=== PATIENT | male | born 1955 | race Caucasian/White ===

== ENCOUNTER 2018-06-22 12:12 | Inpatient (IN) | payer OTHER, SELFPAY ==
[2018-06-18 10:56] VITALS: BMI 25.8
[2018-06-22] VITALS (15 sets, daily range): BP systolic 99–143; BP diastolic 59–86; PULSE 63–84; RESP 7–18; TEMP 36–36.9; O2SAT 88–100; BMI 25.8
--- NOTE | 2018-06-22 | DI.RAD.S_ITS ---
PROCEDURE: XR LUMBAR SPINE 2-3V INDICATIONS: L4-5 TLIF TECHNIQUE: 2 views of the lumbar spine were acquired. COMPARISON: None. FINDINGS: Intraoperative images demonstrate L4-5 posterior fusion. There is trace retrolisthesis of L3 on L4. Hardware appears intact. IMPRESSION: Intraoperative posterior fusion as above. Dictated by: Maddison Hua M.D. on 06/22/2018 at 17:51 Approved by: Maddison Hua M.D. on 06/22/2018 at 17:52
[2018-06-22] MEDS: LACTATED RINGERS 1,000 ML 42 ML IV ×2 (14:35→17:50)
--- NOTE | 2018-06-22 15:01 | PM.PREOP ---
Pre-operative Note Interval Note Pre-op Check: Yes History & Physical Reviewed by Physician, Yes Exam Performed and Yes History & Physical exam performed today by Physician Changes: No
[2018-06-22] MEDS: CEFAZOLIN 2 GM/100 ML FROZ.PIGGY IV ×2 (15:30→23:47)
--- NOTE | 2018-06-22 16:02 | SUR.OPER ---
Prone on spine table, head in foam head support, padded chest and pelvic supports, gel pad at knees, lower legs supported by pillows; nipples, genitalia and toes free of pressure, arms secured on foam padded arm boards at <90 degrees abduction. Tape over blanket at thigh secured to table. gel pad between heels
[2018-06-22] MEDS: BUPIVACAINE 0.25% W/ EPI VIAL 30 ML INJ (16:11)
[2018-06-22] MEDS: BUPIVACAINE LIPOSOME 266 MG/20 ML VIAL INJ (16:12)
--- NOTE | 2018-06-22 17:37 | PM.OP.1 ---
Operative Date/Time/Diagnoses Date of procedure: 06/22/18 Time of procedure: 15:37 Pre-op diagnosis: 1. L4-5 far lateral disc herniation 2. Left sided drop foot 3. L4-5 spinal stenosis with radiculopathy Post-op diagnosis: same Procedure & Clinicians Procedure: 1. L4-5 Postero-lateral and posterior interbody fusion 2. L4-5 interbody cage placement. 3. L4-5 decompressive laminectomy with bilateral facetecomies 4. L4-5 Posterior non-segmental instrumentation 5. [place] of bone marrow from iliac crest 6. Utilization of microsurgical technique and operating microscope Same procedure as scheduled: Yes Indications: Patient has been having chronic back pain and worsening lumbar radiculopathy. Patient was found to have a left-sided L4-5 far lateral disc herniation. As a result, patient has a left-sided drop foot notes progressively worsening. Patient failed multiple conservative management with worsening pain weakness and numbness in her lower extremity. Patient has been having difficulty performing activity of daily living. After discussing risks benefits of treatment options, patient elected proceed with surgery. Surgeon: Silvestre Aguiar Clinical Engineering Director: Jessy Muir Click Yes if Unassisted: No Anesthesia Type: General Operative Notes Closure Type: primary Specimen(s): none sent Implants & Drains: Globus Revolve screws and Rise cages Estimated Blood Loss (mL): 50 Blood products transfused: none Procedure in detail: Patient was seen in the preoperative area. Risks and benefits of the surgery was discussed with the patient. Informed consent was obtained from the patient and placed in the chart. Surgical site was marked. Patient was taken to the operative room. General anesthesia was administered. Prophylactic antibiotic was given to the patient less than 30 min before the incision was made. Patient was placed into a prone position on the Mukesh table. Patient's back was then prepped and draped in the sterile fashion. Time-out was performed at this time. Using AP and lateral C-arm imaging the interval between L4-5 was identified and marked on patient's back. A 2 inch incision 2 in from midline was made on the right side first. The fascia was incised in line with skin incision. Globus MARS retractors was placed inside the incision and docked onto the L4 lamina. Using microsurgical technique and operating microscope, a L4 laminectomy and L4-5 facetectomy was performed using a Kerrison rongeur. The disc space at L4-5 was identified. Patient was found to have a large left-sided far lateral disc herniation causing severe left L4 nerve root impingement. The herniated disc fragment along with the rest of the disc at L4-5 level was removed. The left L4 nerve root was found to be under significant pressure and also flattened as a result. After the decompression was completed, the neural foramen was inspected. There was no impingement on the nerve root after decompression was finished. And a total diskectomy was performed at L4-5 level. The endplates were decorticated using a rasp and shaver. The total diskectomy and decortication was performed at L4-5 level in order to to accomplish a L4-5 fusion. The local bone from the laminectomy and facetectomy was saved for local bone grafting. After the total diskectomy and decortication was completed, Globus viacell bone graft material was combined with local bone that was harvested earlier. At this time, a separate skin is incision was made over the iliac crest. A Jamshidi needle was inserted into the iliac crest through a separate skin incision. 5 cc of bone marrow aspiration was obtained through the separate skin incision using a Jamshidi needle from the iliac crest. The bone marrow aspiration was combined with local bone and the via cell bone grafting material. The bone grafting material was placed into the L4-5 interbody space along with a expandable cage. The cage was expanded to its maximum height using the torque limiting screwdriver. At this time a mirror image incision was made on the left side. The fascia was incised in line with the skin incision. Globus MARS retractor was inserted and docked onto the L4-5 posterolateral gutter. Using the power drill, posterior-lateral decortication was performed at L4-5 level until bleeding cortical bone was identified. The remaining bone grafting material was placed into the L4-5 posterior lateral gutter he order to accomplish posterolateral fusion at the L4-5 level. Using the double C-arm technique, pedicle screws were placed into the L4-5 pedicles bilaterally. This was done by placing the Jamshidi needle into the pedicles, then placing the guidewires over the Jamshidi needle, and finally placing the cannulated screws over the guidewires bilaterally. After the pedicle screws were placed, 2 titanium rods was locked into the heads of the pedicle screws using locking caps and torque limiting screwdriver. After all the hardware was placed, and confirmed with AP and lateral C-arm imaging, the wound was then irrigated with sterile normal saline and packed with Ray-Amina gauze for 3 min to accomplish hemostasis. After the gauze was removed the deep fascia was closed with #1 Vicryl suture. The subcutaneous layer was closed with 2-0 Vicryl. The skin was closed with skin dhruv. Patient tolerated the procedure well. There were no complications. Complications: none Condition: stable Disposition: Acute Care Plan for aftercare: Admit to inpatient hospital
--- NOTE | 2018-06-22 17:42 | P.OP_ITS ---
Operative Date/Time/Diagnoses Date of procedure: 06/22/18 Time of procedure: 15:37 Pre-op diagnosis: 1. L4-5 far lateral disc herniation 2. Left sided drop foot 3. L4-5 spinal stenosis with radiculopathy Post-op diagnosis: same Procedure & Clinicians Procedure: 1. L4-5 Postero-lateral and posterior interbody fusion 2. L4-5 interbody cage placement. 3. L4-5 decompressive laminectomy with bilateral facetecomies 4. L4-5 Posterior non-segmental instrumentation 5. [place] of bone marrow from iliac crest 6. Utilization of microsurgical technique and operating microscope Same procedure as scheduled: Yes Indications: Patient has been having chronic back pain and worsening lumbar radiculopathy. Patient was found to have a left-sided L4-5 far lateral disc herniation. As a result, patient has a left-sided drop foot notes progressively worsening. Patient failed multiple conservative management with worsening pain weakness and numbness in her lower extremity. Patient has been having difficulty performing activity of daily living. After discussing risks benefits of treatment options, patient elected proceed with surgery. Surgeon: Silvestre Aguiar Press Operator Apprentice: Jessy Muir Click Yes if Unassisted: No Anesthesia Type: General Operative Notes Closure Type: primary Specimen(s): none sent Implants & Drains: Globus Revolve screws and Rise cages Estimated Blood Loss (mL): 50 Blood products transfused: none Procedure in detail: Patient was seen in the preoperative area. Risks and benefits of the surgery was discussed with the patient. Informed consent was obtained from the patient and placed in the chart. Surgical site was marked. Patient was taken to the operative room. General anesthesia was administered. Prophylactic antibiotic was given to the patient less than 30 min before the incision was made. Patient was placed into a prone position on the Mukesh table. Patient's back was then prepped and draped in the sterile fashion. Time- out was performed at this time. Using AP and lateral C-arm imaging the interval between L4-5 was identified and marked on patient's back. A 2 inch incision 2 in from midline was made on the right side first. The fascia was incised in line with skin incision. Globus MARS retractors was placed inside the incision and docked onto the L4 lamina. Using microsurgical technique and operating microscope, a L4 laminectomy and L4- 5 facetectomy was performed using a Kerrison rongeur. The disc space at L4-5 was identified. Patient was found to have a large left-sided far lateral disc herniation causing severe left L4 nerve root impingement. The herniated disc fragment along with the rest of the disc at L4-5 level was removed. The left L4 nerve root was found to be under significant pressure and also flattened as a result. After the decompression was completed, the neural foramen was inspected. There was no impingement on the nerve root after decompression was finished. And a total diskectomy was performed at L4-5 level. The endplates were decorticated using a rasp and shaver. The total diskectomy and decortication was performed at L4-5 level in order to to accomplish a L4-5 fusion. The local bone from the laminectomy and facetectomy was saved for local bone grafting. After the total diskectomy and decortication was completed , Globus viacell bone graft material was combined with local bone that was harvested earlier. At this time, a separate skin is incision was made over the iliac crest. A Jamshidi needle was inserted into the iliac crest through a separate skin incision. 5 cc of bone marrow aspiration was obtained through the separate skin incision using a Jamshidi needle from the iliac crest. The bone marrow aspiration was combined with local bone and the via cell bone grafting material. The bone grafting material was placed into the L4-5 interbody space along with a expandable cage. The cage was expanded to its maximum height using the torque limiting screwdriver. At this time a mirror image incision was made on the left side. The fascia was incised in line with the skin incision. Globus MARS retractor was inserted and docked onto the L4-5 posterolateral gutter. Using the power drill, posterior- lateral decortication was performed at L4-5 level until bleeding cortical bone was identified. The remaining bone grafting material was placed into the L4-5 posterior lateral gutter he order to accomplish posterolateral fusion at the L4- 5 level. Using the double C-arm technique, pedicle screws were placed into the L4-5 pedicles bilaterally. This was done by placing the Jamshidi needle into the pedicles, then placing the guidewires over the Jamshidi needle, and finally placing the cannulated screws over the guidewires bilaterally. After the pedicle screws were placed, 2 titanium rods was locked into the heads of the pedicle screws using locking caps and torque limiting screwdriver. After all the hardware was placed, and confirmed with AP and lateral C-arm imaging, the wound was then irrigated with sterile normal saline and packed with Ray-Amina gauze for 3 min to accomplish hemostasis. After the gauze was removed the deep fascia was closed with #1 Vicryl suture. The subcutaneous layer was closed with 2-0 Vicryl. The skin was closed with skin dhruv. Patient tolerated the procedure well. There were no complications. Complications: none Condition: stable Disposition: Acute Care Plan for aftercare: Admit to inpatient hospital
[2018-06-22] MEDS: HYDROMORPHONE 2 MG INJ 0.5 MG IV ×3 (18:08→18:24)
[2018-06-22] MEDS: hydrOXYzine 50 MG/ML INJ 25 MG IM (18:27)
--- NOTE | 2018-06-22 18:30 | SUR.PHASEI ---
Report called to Nazia Joyce.
[2018-06-22] MEDS: SODIUM CHLORIDE 0.9% 1,000 ML 100 ML IV (18:45)
--- NOTE | 2018-06-22 18:49 | SUR.PHASEI ---
Pt transferred to the floor, Report to Nazia, Belongings bag with patient. VS stable, Drsg inspected with Nazia. Spouse present. IV patent.
[2018-06-22] MEDS: OXYCODONE IR 5 MG TABLET 10 MG PO ×2 (21:00→23:47)
--- NOTE | 2018-06-22 21:55 | PC.NURSE ---
Deniz brought up from ER via wheelchair, able to transfer to bed. Very unsteady on feet, has been up once since, ambulating to BR with 1 mod assist by PAYROLL SUPERVISOR. Reports weakness and vomiting for the last 5 days. CIWA baseline is 4, mostly for moderate tremor to UE's. Oriented when arrived but now confused to date and events. Denies hallucinations or tactile disturbance. Reorients well, reminded to use call button & to not get OOB without staff present. VS stable. Tele SR. Seizure pads on rails per CIWA protocol. Bed alarm active at all times.
--- NOTE | 2018-06-22 21:58 | PC.NURSE ---
Deniz brought from PACU at 1840 VS stable. When dozing RA o2 sats went down to 85%, 2L O2 NC applied, since then continuous pulse ox has not alarmed and sats are 93-98% Back drsg is CDI. Reports pain 5/10, medicated with 2 Oxycodone. Tolerated pudding and soup. IVF infusing to IV with no difficulty. Denies urge to void, urinal at bedside. He told me he was a smoker, when I asked if he wanted me to get order from Dr for a nicotine patch he refused saying no- I'm OK for now. He is calm, Ox3, cooperative and using call button appropriately. Instructed to call staff before trying to reposition to side, logrolling technique reinforced.
[2018-06-23] VITALS: O2SAT 95
[2018-06-23] MEDS: OXYCODONE IR 5 MG TABLET 10 MG PO ×3 (04:12→12:03)
[2018-06-23] MEDS: SODIUM CHLORIDE 0.9% 1,000 ML 100 ML IV (04:12)
[2018-06-23 05:19] VITALS: BP 100/69; PULSE 67; RESP 16; TEMP 36.7; O2SAT 95
[2018-06-23 06:17] LABS: Hematocrit 37.8 % (41-53); Hemoglobin 12.9 g/dL (13.5-17.5)
--- NOTE | 2018-06-23 07:44 | PM.PNPO.1 ---
Subjective Date Patient Seen: 06/23/18 Time Patient Seen: 07:44 Interval history: Pt is PD 1. S?P L4-[address] Aguiar. Pain tolerable with pain medication. Has not been up with PT yet but got up last night to urinate. Would like to go home later today. Exam Vital Signs (past 8 hours): - 06/23/18 00:00 06/23/18 05:19 Temperature 98.0 F Pulse Rate 67 Respiratory Rate 16 Blood Pressure 100/69 Pulse Oximetry 95 95 Oxygen Delivery Method Nasal Cannula Oxygen Flow Rate 1 Narrative Exam Narrative: Pt in bed. A&O x3. Appears comfortable. Dressing CDI. Ashwin calves soft and nontender. /5 BLE. Objective Labs Result Diagrams: 06/23/18 05:34 Labs: Laboratory Results - last 24 hr 06/23/18 05:34 Hgb 12.9 L Hct 37.8 L Assessment & Plan Post-op Postoperative Procedures Operation Date: 06/22/18 14:45 Actual Procedures Side Surgeon p L4-5 TLIF Silvestre Aguiar MD PD 1. Pt to mobilize with therapy today. Continue pain meds and DVT prophylaxis. Will write D/C orders for this afternoon if does well with therapy. Time Spent With Patient less than 15 minutes Quality VTE Deep Vein Thrombosis/Pulmonary Embolism Present on Admission: No
[2018-06-23 07:49] VITALS: BP 126/84; PULSE 65; RESP 18; TEMP 36.8; O2SAT 97
[2018-06-23] MEDS: CEFAZOLIN 2 GM/100 ML FROZ.PIGGY IV (08:19)
[2018-06-23] MEDS: LISINOPRIL 10 MG TABLET PO (08:19)
[2018-06-23] MEDS: DOCUSATE 100 MG CAPSULE PO (08:19)
--- NOTE | 2018-06-23 08:57 | CM.DANOTE ---
DCP: Case received, EMR reviewed and met with patient. Introduced self and role. DCP template completed with information currently available. Patient is a 63 year old male who admitted yesterday at noon to the care of the hospitalist team. Patient stated that he does not have a primary doctor. Payer: confirmed: [facility]. Patient here for back surgery, L4-5 Postero-lateral interbody fusion. Has been independent at home, lives with his spouse. P: May be discharged home today, dependent upon hospitalist, and therapy. Carola Powell RN/Hotel Sales Manager
--- NOTE | 2018-06-23 09:28 | PT.IIE ---
Current Diagnoses Foot drop, left foot (06/22/18) Spinal stenosis, lumbar region without neurogenic claudication (06/22/18) Intervertebral disc disorders with radiculopathy, lumbar region (06/22/18) Surgery Performed Operation Date: 06/22/18 14:45 Actual Procedures p L4-5 TLIF - Silvestre Aguiar MD Surgical History (Last Updated 06/18/18 @ 11:17 by Barbara Enamorado RN) Hx of appendectomy (Acute) Medical History (Last Updated 06/18/18 @ 11:14 by Barbara Enamorado RN) GERD (gastroesophageal reflux disease) (Acute) HTN (hypertension) (Acute) Sleep apnea (Acute) Physical Therapy Inpatient Evaluation/Re-Eval M1 PT/OT-IP Prior Functional Status Start: 06/23/18 12:55 Freq: NEEDED Status: Active Protocol: Document 06/23/18 09:28 AB (Rec: 06/23/18 13:07 AB [email or web address]) Medical Review Prior Functional Status Medical History Reviewed Yes Communication able to make needs known Mobility and Gait pt stated that he is independent with all mobilities and ambulation without AD Prior Functional Level (Other details) stated that his [id number] will assist him when his spouse is at work Social History Household Members spouse family Living Arrangements House Number of Floors (Floors) One Floor Number of Stairs To Enter/Railing? 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 M2 PT-IP Current Condition Start: 06/23/18 12:55 Freq: NEEDED Status: Active Protocol: Document 06/23/18 09:28 AB (Rec: 06/23/18 13:07 AB [email or web address]) Physical Therapy Current Condition Current Condition Evaluation Date 06/23/18 Treatment Diagnosis s/p L4-5 TLIF and laminectomy; difficulties in walking Onset Date 06/22/18 Precautions Lumbar Precautions Log Roll No Twisting Limit Bending Lifting Restriction of 10 lbs Gait Belt above Incisional Area M3 PT-IP Subjective Start: 06/23/18 12:55 Freq: NEEDED Status: Active Protocol: Document 06/23/18 09:28 AB (Rec: 06/23/18 13:07 AB [email or web address]) Subjective Physical Therapy Visit Type Type Initial Evaluation Visit Start Time 09:28 Visit Stop Time 10:06 Total Visit Minutes 38 Number of BLOOD BANK LABORATORY TECHNICIAN Visits 0 Physical Therapy Visit Comments Patient Comments pt agreeable to do therapy Short Term Goals wants to go home Therapy Pain Assessment Pain When Pain Assessed At Rest Pain Present Pain Present Pain Reported Location Back Intensity 5 Scale Used Numeric (1 - 10) Pain Management Techniques Apply Cold Timing of Activity with Medications M4 PT-IP Mobility and Gait Start: 06/23/18 12:55 Freq: NEEDED Status: Active Protocol: Document 06/23/18 09:28 AB (Rec: 06/23/18 13:07 AB [email or web address]) PT-Bed Mobility Assessment Rolling Type of Rolling Log Rolling Level of Assist Standby Assistance Supine to Sit Supine to Sit Standby Assistance Scooting Scooting to Edge of Bed Standby Assistance PT-Transfer Assessment Sit to and From Stand Sit to and from Stand Standby Assistance Equipment Transfer Assistive Device Gait Belt Front Wheeled Walker Orthotic/Prosthetic Devices or Brace: No Transfers Transfer Destination Chair Toilet Transfer Technique pt ambulated to the toilet and chair using FWW Transfer Ability Level of Assist Standby Assistance 1 Person Assistance Comments Mobility Comments pt ambulated from bed to the toilet using FWW SBA and was able to maintain standing SBA while using toilet. pt ambulated towards the sink using FWW SBA and was able to maintain standing using FWW for support while doing grooming SBA. Gait Assessment Gait Gait Assistance Required: Standby Assistance Distance (Feet) (feet) 200 Able to Maintain Weight Bearing Status Yes During Gait Assistive Devices Assistive Device Gait Belt Front Wheeled Walker Orthotic/Prosthetic Devices or Brace: No Gait Deviations General Gait Pattern Antalgic Decreased Stride Length Decreased Feet Clearance Factors Limiting Gait Function Factors Limiting Gait Function Decreased Activity Tolerance Decreased Strength Pain Poor Balance PT-Balance Assessment Sitting Balance and Reactions Static Sitting Balance Ability Good Dynamic Sitting Balance Ability Good Standing Balance and Reactions Static Standing Balance Ability Fair Dynamic Standing Balance Ability Fair Device Used FWW M5 PT-IP Objective Assessments Start: 06/23/18 12:55 Freq: NEEDED Status: Active Protocol: Document 06/23/18 09:28 AB (Rec: 06/23/18 13:07 AB [email or web address]) Orientation Orientation/Cognition Level of Alertness Alert Orientation Name Age Birthday Month Date Year Day of Week Place Situation Safety Awareness Understands Safety Issues Gross Range of Motion Lower Extremity ROM Assessment Within Functional Limits Strength Lower Extremity Strength Assessment Within Functional Limits Muscle Tone Muscle Tone WNL Yes M6 PT-IP Treatment Start: 06/23/18 12:55 Freq: NEEDED Status: Active Protocol: Document 06/23/18 09:28 AB (Rec: 06/23/18 13:07 AB [email or web address]) Physical Therapy Treatment Education Education Provided Precautions Weight Bearing Status Post-Op Packet Safety M7 PT-IP Assessment and Plan Start: 06/23/18 12:55 Freq: NEEDED Status: Active Protocol: Document 06/23/18 09:28 AB (Rec: 06/23/18 13:07 AB [email or web address]) PT Summary Assessment and Plan Potential Rehabilitation Potential Good Status of Condition at Evaluation Stable Summary Impairments Pain ROM Strength Balance Coordination Sensation Tone Cognition Bed Mobility Transfers Gait Activity Tolerance Assessment Summary pt requiring SBA with mobility and will have family to assist him at home. Goals Bed Mobility Goal Independent Transfer Goal Independent Gait Goal Independent Gait Distance 250 Days to Meet Goals 2 Frequency of Treatment Frequency Of Treatment Twice a Day Treatment Plan Physical Therapy Treatment Plan Bed Mobility Training Transfer Training Gait Training Therapeutic Exercise Balance Retraining Post Op Education Discharge Planning Hot or Cold Pack Neuromuscular Re-ed Coordination Retraining Manual Therapy Recommendations To Nursing Amount of Assist Needed Standby Assistance Discharge Recommendations PT Discharge Recommendations Home with Assistance
--- NOTE | 2018-06-23 10:10 | PC.NURSE ---
Dressing intact, given 10mg of percolone this morning. Will work with p.t. and then patient is hoping to discharge home later. Denies numbness or tingling to lower extremities
[2018-06-23 11:35] VITALS: BP 113/68; PULSE 78; RESP 18; TEMP 37.7; O2SAT 98
--- NOTE | 2018-06-23 14:10 | OT.IP.EVAL ---
Current Diagnoses Foot drop, left foot (06/22/18) Spinal stenosis, lumbar region without neurogenic claudication (06/22/18) Intervertebral disc disorders with radiculopathy, lumbar region (06/22/18) Surgery Performed Operation Date: 06/22/18 14:45 Actual Procedures p L4-5 TLIF - Silvestre Aguiar MD Past Medical History (Last Updated 06/18/18 @ 11:14 by Barbara Enamorado, RN) GERD (gastroesophageal reflux disease) (Acute) HTN (hypertension) (Acute) Sleep apnea (Acute) Surgical History (Last Updated 06/18/18 @ 11:17 by Barbara Enamorado RN) Hx of appendectomy (Acute) Occupational Therapy Inpatient Evaluation/Re-Eval M1 PT/OT-IP Prior Functional Status Start: 06/23/18 15:26 Freq: NEEDED Status: Active Protocol: Document 06/23/18 14:10 PJM (Rec: 06/23/18 15:38 PJM [id number]) Medical Review Prior Functional Status Medical History Reviewed Yes Diet/Fluid Consistency Regular Communication WFL Mobility and Gait pt stated that he is independent with all mobilities and ambulation without AD Activities of Daily Living and IADL's Pt states he was independent but struggled to don/doff L sock due to back pain. 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 Pt's works early AM hours (4:30AM to 12 noon). Pt 's mother in law can assist PRN while at work Social History Household Members spouse family Living Arrangements House Number of Floors (Floors) One Floor Number of Stairs To Enter/Railing? 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 Diagnosis Onset Date 06/22/18 Post Operative Precautions Lumbar Precautions Log Roll No Twisting Limit Bending Lifting Restriction of 10 lbs Gait Belt above Incisional Area M3 OT- IP Subjective and Pain Start: 06/23/18 15:26 Freq: Status: Active Protocol: Document 06/23/18 14:10 PJM (Rec: 06/23/18 15:38 PJ [email or web address]) OT- Subjective Occupational Therapy Visit Type Type Initial Evaluation Visit Start Time 13:35 Visit Stop Time 14:10 Total Visit Minutes 35 Occupational Therapy Visit Comments Patient Comments I think I am ready to go home. Patient/Caregiver Goals to return to work in 2-3 weeks if MD approves OT Pain Assessment Pain When Pain Assessed After Treatment Location Back Intensity 5 Scale Used Numeric (1 - 10) Description Aching Pain Behaviors Guarding Management Techniques Apply Cold Re-positioning M4 OT- IP ADL's Start: 06/23/18 15:26 Freq: Status: Active Protocol: Document 06/23/18 14:10 PJM (Rec: 06/23/18 15:38 PJ NRTM) OT RKN-Tysp-Rlijqam General Evaluation Self-Feeding Ability Independent OT ADL-Grooming General Evaluation Grooming Ability Independent Comments OT Grooming Comments Provided education re: body mechanics at sink. 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 Provided long shoe horn and sock aid at pt request, after demo and education. OT ADL-Toileting General Evaluation Toileting Ability Independent Comments OT Toileting Comments Provided education re: body mechanics OT ADL-Bathing Comments OT Bathing Comments Pt declined shower. will obtain long bath sponge for pt . Provided education re: body mechanics. M5 OT- IP IADL's Start: 06/23/18 15:26 Freq: Status: Active Protocol: Document 06/23/18 14:10 PJM (Rec: 06/23/18 15:38 PJ [id number]) OT-Instrumental Activities of Daily Living Deficits IADL Deficits Identified Deficits Home Safety Awareness Awareness of Need for Assistance at Home Good Awareness Ability to Problem Solve Emergency Able to Problem Solve Situations Medication Management Medication Management No Deficits Identified Money Management Money Management No Deficits Identified Meal Preparation Meal Preparation Caregiver Provides Assist Meal Preparation Comments can assist PRN. Middleware Engineer Middleware Engineer Caregiver Provides Assist Driving Driving Caregiver Provides Assist Driving Comments until pt able M6 OT- IP Functional Cognition Start: 06/23/18 15:26 Freq: Status: Active Protocol: Document 06/23/18 14:10 PJM (Rec: 06/23/18 15:38 PJ [email or web address]) Cognitive Factors Limiting Selfcare Function Cognitive Ability Patient Orientation Name Age Birthday Month Date Year Day of Week Place Situation Attention Span Ability Capable of Focused Attention Capable of Sustained Attention Ability to Follow Commands Able to Follow One Step Commands Memory Description No Deficits Noted Safety Awareness No Deficits Noted Cognitive Comments Cognitive Assessment Comments Pt verbalizes 3/3 spine precautions. OT- Vision and Hearing OT- Hearing Assessment OT- Hearing Assessment WFL OT- Vision Assessment Visual Acuity WFL Vision Assessment Comments Pt denies any recent changes. M7 OT- IP Mobility and Balance Start: 06/23/18 15:26 Freq: Status: Active Protocol: Document 06/23/18 14:10 PJM (Rec: 06/23/18 15:38 [facility] [email or web address]) OT-Transfer Assessment Sit to and From Stand Sit to and from Stand Standby Assistance Transfers Transfer Ability Standby Assistance Technique Transfer Destination Car Chair Comments Mobility Comments Provided education re:sitting posture and chair selection at home. Provided education re: car transfers. OT- Gait Assessment Gait Gait Assistance Required: Standby Assistance Assistive Devices Assistive Device Front Wheeled Walker Comments Gait Ability Comments Pt ambulated 20 ft in room with FWW. OT- Balance Assessment Sitting Balance and Reactions Static Sitting Balance Ability Good Dynamic Sitting Balance Ability Good Standing Balance and Reactions Static Standing Balance Ability Good Dynamic Standing Balance Ability Good Comments Other Balance Tests/Deviations/Treatment standing with FWW : M8 OT- IP Objective Assessments Start: 06/23/18 15:26 Freq: Status: Active Protocol: Document 06/23/18 14:10 PJM (Rec: 06/23/18 15:38 PJ [email or web address]) OT Gross Range of Motion Upper Extremity Range of Motion Assessment Within Functional Limits OT Strength Upper Extremity Strength Assessment Within Functional Limits OT- Coordination Assessment Comments Coordination Comments BUE WFL OT-Muscle Tone Assessment Muscle Tone WNL Yes OT Sensation Assessment Comments Summary Comments Pt denies deficits in BUE's Edema Edema Absent M9 OT- IP Assessment and Plan Start: 06/23/18 15:26 Freq: Status: Active Protocol: Document 06/23/18 14:10 PJM (Rec: 06/23/18 15:38 PJM [email or web address]) OT Summary Assessment and Plan Potential Rehabilitation Potential Good Analytic Complexity at Evaluation Low Summary OT Impairments Pain Assessment Summary Low complexity OT assessment and all education completed in one session re: lumbar spine precautions, posture, chair selection and body mechanics during self care skills. Pt's here for education. Pt plans to d/c home today with working . His mother in law can assist PRN while at work. No further OT services needed. Treatment Plan Other Treatment Recommendations and Next No further OT services needed Treatment Focus Discharge Recommendations OT Discharge Recommendations Home with Assistance
--- NOTE | 2018-06-24 08:35 | P.DS_ITS ---
History of Present Illness Date Patient Seen: 06/23/18 Time Patient Seen: 07:44 Chief complaint: [id number] L4-5 TLIF Narrative: Details the patient's H&P can be found in the electronic chart. Patient is 63-year-old male with history of intractable back pain. He elected to proceed with a L4-[address] Aguiar at [facility]. Discharge Providers Date of admission: 06/22/18 12:12 Consults: 06/22/18 19:04 Consult to Occupational Therapy Evaluate & Treat Comment: Physician Instructions: Evaluate and treat Consult to Physical Therapy Evaluate & Treat Comment: Physician Instructions: Evaluate and Treat Discharge provider: Teresa Cervantes PA-C Summary Discharge Diagnosis: L4-5 far lateral disc herniation Left-sided footdrop L4-5 spinal stenosis with radiculopathy Hospital Course: Patient was admitted taken operating room where he had an L4-[address] Aguiar. He recovered well as stretch to the floor for further care. Postop day 1 the patient's pain was under control, he was eating and drinking well, able to urinate without difficulty and was ready to be discharged home. He is discharged home with a prescription for Vistaril and oxycodone. He will follow up in office in 10-14 days. No heavy lifting bending or twisting. Exam Vital Signs (past 8 hours): Oxygen Delivery Method Nasal Cannula Oxygen Flow Rate 1 Narrative Exam Narrative: Patient in bed. Alert orient x3. Appears comfortable. Vac dressing clean dry intact. Bilateral calves soft and nontender. 5/5 BLE. Objective Labs Result Diagrams: 06/23/18 05:34 Discharge Plan Discharge Plan Patient Disposition: Home, Self-Care Discharge Med Rec/Prescriptions Prescriptions: New acetaminophen 325 mg Tablet 650 mg PO Q6HR MDD 3000mg per day PRN (Reason: Pain, Mild (1-3)) Qty: 0 RF: 0 hydroxyzine pamoate 25 mg Capsule 25 mg PO Q6H PRN (Reason: Nausea And Vomiting) Qty: 40 RF: 0 oxycodone 5 mg Tablet 10 mg PO Q3-4H PRN (Reason: Pain, Severe (7-10)) Qty: 60 RF: 0 Continue lisinopril 10 mg Tablet 10 mg PO QAM RF: 0 lansoprazole [Prevacid] 30 mg Capsule,Delayed Release(Dr/Ec) 30 mg PO PRN PRN (Reason: gerd) RF: 0 Discontinued naproxen sodium [Aleve] 220 mg Capsule 4 tab PO BID RF: 0 Follow up/Referrals: Silvestre Aguiar MD [Physician] - (F/U at scheduled date and time 10-14 days post op. Contact office with any issues or concerns.) Provider Discharge Instructions Diet: Diet as Tolerated Activity: Ambulate with walker/cane. No heavy lifting, bending or twisting. Cold/Heat Therapy: Apply is as needed for pain and swelling. Wound Care Report to your healthcare provider any signs of infection, such as:: chills, fever and increased pain Dressing: Keep dressing dry and intact. May shower. Visit Report/Discharge Packet Instructions: Spinal Fusion, DI for Transforaminal Lumbar Interbody Fusion Visit Report Forms: Stroke Signs & Symptoms Discharge Data Attending Provider: Silvestre Aguiar Admit Date/Time: 06/22/18 12:12 Discharges patient from system. Discharge Date/Time: 06/23/18 14:28 Quality VTE Deep Vein Thrombosis/Pulmonary Embolism Present on Admission: No
== END 2018-06-23 14:28 | disposition home or self-care (01) | DRG 455 ==
PROVIDERS: Admitting Provider Orthopaedic Surgery Orthopaedic Surgery of the Spine; Visit Provider Orthopaedic Surgery Orthopaedic Surgery of the Spine
PROC: 0SG00AJ Fusion of Lumbar Vertebral Joint with Interbody Fusion Device, Posterior Approach, Anterior Column, Open Approach (ICD-10-PCS; principal; 2018-06-22 14:45)
DX: M51.16 Intervertebral disc disorders with radiculopathy, lumbar region (principal); M47.26 Other spondylosis with radiculopathy, lumbar region; I10 Essential (primary) hypertension; M21.372 Foot drop, left foot; M48.062 Spinal stenosis, lumbar region with neurogenic claudication; M51.26 Other intervertebral disc displacement, lumbar region
CPT/HCPCS: 36415; 72100; 76001; 85014; 85018; 94760; 97116; 97161; 97165; 97535; 99406; C1776; C9290; J0330; J0690; J1100; J1170; J2405; J2704; J3410